=== PATIENT | female | born 1985 | race African-American/Black ===

== ENCOUNTER 2019-05-14 16:21 | Emergency (ER) | payer OTHER, SELFPAY ==
[2019-05-14] VITALS (7 sets, daily range): BP systolic 147–151; BP diastolic 90–98; PULSE 88–106; RESP 17–24; TEMP 36.9; O2SAT 8–100
--- NOTE | ~2019-05-14 | XR_ITS ---
EXAMINATION: XR chest 2V DATE: 05/14/2019 18:03 INDICATION: Shortness of breath TECHNIQUE: PA and lateral views of the chest are obtained. COMPARISON: 03/22/2017 FINDINGS: The lungs are free of acute opacities. There is no pleural effusion or pneumothorax. The ca rdiomediastinal silhouette is normal. The visualized bones and soft tissues are unremarkable. IMPRESSION: 1. No acute cardiopulmonary abnormality. Reviewed, dictated and finalized at location A. CUT ENGRAVER
--- NOTE | 2019-05-14 17:21 | ECG_ITS ---
Measurements Intervals [place] Rate: 97 P: 54 AR: 130 QRS: 61 QRSD: 70 T: 41 QT: 321 QTc: 409 Interpretive Statements SINUS RHYTHM BASELINE ARTIFACT- I, II, III, AVR, AVL NORMAL ECG Electronically Signed On 05-14-2019 19:49:07 [employer] by Dominic Lo D.O.
[2019-05-14 17:34] LABS: Basophils Percent Auto 0.4 % (0.2-1.2); Eosinophils Absolute Auto 0.5 K/mm3 (0-0.3); Eosinophils Percent Auto 6.1 % (0-4.4); Hematocrit 39.9 % (37.0-47.0); Hemoglobin 12.6 g/dL (12.0-15.0); Immature Granulocyte Absolute 0.02 K/mm3 (0.00-0.031); Immature Granulocyte Percent A 0.3 % (0-0.5); Lymphocytes Absolute Auto 2.84 K/mm3 (0.9-3.2); Lymphocytes Percent Auto 36.1 % (18.3-44.2); Mean Corpuscular HGB Conc 31.6 g/dl (32-36); Mean Corpuscular Volume 82.3 fl (80-100); Mean Platelet Volume 10.6 fl (7.4-10.4); Monocytes Absolute Auto 0.9 K/mm3 (0.1-0.6); Monocytes Percent Auto 10.8 % (2.6-8.5); Neutrophils Absolute Auto 3.7 K/mm3 (1.3-6.7); Neutrophils Percent Auto 46.3 % (45.5-73.1); Platelet Count Result 321 k/mm3 (150-375); Red Blood Count 4.85 M/mm3 (4.2-5.4); Red Cell Distribution Width 15.1 % (11.5-14.5); White Blood Count 7.9 K/mm3 (4.5-10.0)
[2019-05-14 17:45] LABS: Blood Urea Nitrogen 16 mg/dL (7-17); Calcium 9.6 mg/dL (8.4-10.2); Carbon Dioxide 25 mmol/L (22-30); Chloride 100 mmol/L (98-107); Estimated Glomerular Filt Rate > 60; Glucose 93 mg/dL (65-105); Potassium 4.1 mmol/L (3.4-5.0); Sodium 141 mmol/L (137-145)
--- NOTE | 2019-05-14 20:10 | ED.SOB ---
HPI - SOB/Dyspnea General Chief Complaint: Shortness of Breath/Dyspnea <Jet Larkin PA-C - Last Filed: 05/14/19 21:57> Stated Complaint: asthma <Jet Larkin PA-C - Last Filed: 05/14/19 21:57> Time Seen by Provider: 05/14/19 19:29 <Jet Larkin PA-C - Last Filed: 05/14/19 21:57> Source: patient <Jet Larkin PA-C - Last Filed: 05/14/19 21:57> Mode of arrival: ambulatory <Jet Larkin PA-C - Last Filed: 05/14/19 21:57> Limitations: no limitations <Jet Larkin PA-C - Last Filed: 05/14/19 21:57> History of Present Illness HPI Narrative: Patient is a 33-year-old female who presents to emergency department for evaluation of asthma exacerbation that began today with wheezing shortness of breath noting the symptoms have been present most of the day on arrival notes that she has been getting over some upper respiratory symptoms with nonproductive cough rhinorrhea and congestion but denies any vomiting diarrhea does note some aching of the chest with coughing. Patient on arrival is in no distress he does present with wheezing typically notes that she gets better with updraft and steroids. <Jet Larkin PA-C - Last Filed: 05/14/19 21:57> Related Data Allergies/Adverse Reactions: Allergies Allergy/AdvReac Type Severity Reaction Status Date / Time No Known Allergies Allergy Unknown Unverified 01/21/19 19:15 No Known Allergies Allergy Uncoded 01/21/19 19:15 <Jet Larkin PA-C - Last Filed: 05/14/19 21:57> Review of Systems Review of Systems: All systems reviewed & are unremarkable except as noted in HPI and below <Jet Larkin PA-C - Last Filed: 05/14/19 21:57> [facility] Past Medical History Medical History: Medical History Asthma Chlamydia <Jet Larkin PA-C - Last Filed: 05/14/19 21:57> Surgical History Surgical History: Surgical History H/O tubal ligation <Jet Larkin PA-C - Last Filed: 05/14/19 21:57> Social History Social History: Social History Smoking status: Never smoker Gender identity (if verbalized by the patient): Female <Jet Larkin PA-C - Last Filed: 05/14/19 21:57> Exam Narrative: Exam Narrative: GENERAL: Well-appearing, well-nourished, and in no acute distress. HEAD: Normocephalic, atraumatic. EYES: PERRLA and EOMI. ENT: Nares clear, no rhinorrhea or epistaxis. Mucous membranes moist. Oropharynx without tonsillar hypertrophy exudate or other lesions. CHEST: Clear to auscultation. No respiratory distress. Expiratory wheezes noted HEART: Regular rate and rhythm. No murmur heard. EXTREMITIES: Normal range of motion. No edema. SKIN: Warm, dry, no rash. NEURO: No focal deficits. Alert and oriented x3. Normal speech and gait PSYCH: Normal mood and affect. <Jet Larkin PA-C - Last Filed: 05/14/19 21:57> Course Course Emergency Course: Patient in the room in no distress aware of case findings treatment plan and diagnosis agreeing to follow-up as directed or to return if symptoms worsen or concerns <Jet Larkin PA-C - Last Filed: 05/14/19 21:57> Vital Signs Vital signs: Vital Signs Temperature 36.9 C 05/14/19 17:21 Pulse Rate 100 05/14/19 17:21 Respiratory Rate 19 05/14/19 17:21 Blood Pressure 151/98 H 05/14/19 17:21 Pulse Oximetry 100 05/14/19 17:21 Temperature 36.9 C 05/14/19 17:21 Pulse Rate 88 05/14/19 22:03 Respiratory Rate 18 05/14/19 22:03 Blood Pressure 148/96 H 05/14/19 22:03 Pulse Oximetry 98 05/14/19 22:03 <Jet Larkin PA-C - Last Filed: 05/14/19 21:57> Vital Signs Temperature 36.9 C 05/14/19 17:21 Pulse Rate 100 05/14/19 17:21 Respiratory Rate 19 05/14/19 17:21 Blood Pressure 151/98 H 05/14/19 17:21 Pu
[2019-05-14] MEDS: IPRATROPIUM BR 0.02% INH SOLN 0.5 MG/2.5 ML VIAL INHALATION (20:23)
[2019-05-14] MEDS: ALBUTEROL SULFATE NEB 2.5 MG/0.5 ML INH 5 MG INHALATION ×2 (20:23→21:11)
[2019-05-14] MEDS: predniSONE 20 MG TABLET 60 MG PO (20:26)
== END 2019-05-14 22:03 | disposition home or self-care (01) ==
PROVIDERS: Emergency Provider Emergency Medicine; PCP Family Medicine
DX: J45.901 Unspecified asthma with (acute) exacerbation (principal)
CPT/HCPCS: 36415; 71046; 80048; 85025; 93005; 94640; 99284; J7512

== ENCOUNTER 2019-07-18 22:38 | Emergency (ER) | payer OTHER, SELFPAY ==
--- NOTE | ~2019-07-18 | CT_ITS ---
EXAMINATION: CT abdomen pelvis w con EXAM DATE: 07/18/2019 23:37 INDICATION: Left-sided abdominal pain. TECHNIQUE: Spiral CT of the abdomen and pelvis was performed following intravenous injection of 100 m L Omnipaque 350. Axial, coronal and sagittal images were reviewed. The dose-length product (DLP) fo r this examination was 559.42 mGy-cm. The exposure was tailored according to patient size (auto mA e xposure control), and iterative reconstruction (ASIR) was used as additional dose reduction technique . Comparison is made to prior examination from 03/22/2017. FINDINGS: The liver, spleen, adrenal glands and pancreas are unremarkable. Gallbladder is unremarkab le. No biliary obstruction. Portal and splenic veins are patent. Kidneys enhance symmetrically. T here is no hydronephrosis. Probable small fibroid. The bladder is undistended at time of imaging. There is no retroperitoneal or pelvic lymphadenopathy. The appendix is normal. The stomach and small bowel are unremarkable. There is moderate amount of c olonic stool. No free intraperitoneal gas. The heart is normal in size. There are no pericardial or pleural effusions. The lung bases are unremarkable. The bones are normal. IMPRESSION: 1. Moderate amount of colonic stool. 2. No acute intra-abdominal findings. 3. Probable small fibroid. Reviewed, dictated and finalized at location A.
[2019-07-18 22:40] VITALS: BP 153/109; PULSE 92; RESP 16; O2SAT 100
[2019-07-18 22:52] LABS: Basophils Absolute Auto 0.1 K/mm3 (0.0-0.1); Basophils Percent Auto 0.5 % (0.2-1.2); Eosinophils Absolute Auto 0.4 K/mm3 (0-0.3); Eosinophils Percent Auto 4.2 % (0-4.4); Hematocrit 41.6 % (37.0-47.0); Immature Granulocyte Absolute 0.01 K/mm3 (0.00-0.031); Immature Granulocyte Percent A 0.1 % (0-0.5); Lymphocytes Percent Auto 40.5 % (18.3-44.2); Mean Corpuscular HGB Conc 31.3 g/dl (32-36); Mean Corpuscular Hemoglobin 25.7 pg (26-34); Mean Corpuscular Volume 82.2 fl (80-100); Mean Platelet Volume 10.3 fl (7.4-10.4); Monocytes Absolute Auto 0.5 K/mm3 (0.1-0.6); Monocytes Percent Auto 5.8 % (2.6-8.5); Neutrophils Absolute Auto 4.5 K/mm3 (1.3-6.7); Neutrophils Percent Auto 48.9 % (45.5-73.1); Platelet Count Result 374 k/mm3 (150-375); Red Blood Count 5.06 M/mm3 (4.2-5.4); Red Cell Distribution Width 14.8 % (11.5-14.5); White Blood Count 9.1 K/mm3 (4.5-10.0)
--- NOTE | 2019-07-18 22:52 | ED.ABDPAIN ---
HPI - Abdominal Pain General Chief Complaint: Abdominal Pain Stated Complaint: abd pain Time Seen by Provider: 07/18/19 22:40 Source: patient Mode of arrival: ambulatory Limitations: no limitations History of Present Illness HPI narrative: 33 yo female who presents for evaluation of left upper abdominal pain. Patient states today her pain started 1.5 hours ago while she was having a bowel movement. Her pain has been constant for 1 hours. She states she had similar pain a couple of times over the past couple weeks but they only lasted a few minutes. She denies associated nausea, vomiting, diarrhea or urinary symptoms. She has not taken anything for pain. MD elicited complaint: abdominal pain Pain Consistency: constant Location: LUQ Pain scale (0-10): 9 Quality: stabbing Radiation: LUQ Exacerbating factors: nothing Relieving factors: nothing Related Data Home Medications Medication Instructions Recorded Confirmed amitriptyline 07/18/19 metformin 500 mg PO DAILY 07/18/19 Allergies Allergy/AdvReac Type Severity Reaction Status Date / Time No Known Allergies Allergy Verified 07/18/19 22:44 Review of Systems Review of Systems: All systems reviewed & are unremarkable except as noted in HPI and below Constitutional: Constitutional: Denies chills, Denies fever(s) and Denies weakness Cardiovascular: Cardiovascular: Denies chest pain Respiratory: Respiratory: Denies cough and Denies dyspnea Gastrointestinal: Gastrointestinal: Reports abdominal pain, Denies constipation, Denies diarrhea, Denies nausea and Denies vomiting Genitourinary: Genitourinary: Denies hematuria, Denies nocturia, Denies dysuria, Denies flank pain and Denies urinary incontinence Musculoskeletal: Musculoskeletal: Denies back pain [facility] Past Medical History Medical History Asthma Chlamydia Surgical History Surgical History H/O tubal ligation Social History Social History (Updated 07/18/19 @ 22:59 by Linda Astudillo MD) Smoking status: Never smoker Alcohol intake: current Alcohol use details: social drinking Gender identity (if verbalized by the patient): Female Exam Const: General: no acute distress and alert Orientation/consciousness: patient oriented x3 Chest: Chest palpation & inspection: normal inspection of the chest Resp: Effort & Inspection: normal respiratory effort and no retractions Auscultation: clear to auscultation bilaterally Cardio: Rate: regular rate Rhythm: regular rhythm Heart sounds: no murmurs GI: Inspection: non-distended GI Palp: Yes Soft to palpation, Yes Tenderness to palpation present (GI) (LUQ, LLQ), No Guarding due to palpation present (GI) and No Rigid due to palpation : General: Yes no CVA tenderness Skin: General skin exam: normal color Rashes: no rashes Neuro: General: patient oriented x3 and moves all extremities Course Reevaluation(s) Reevaluation #1: I have discussed with patient that CT shows fibroid but no acute findings. I Discussed she will need to follow up with PCP and start taking medication like pepcid and maalox for her pain. Date: 07/19/19 Time: 00:30 Vital Signs Vital signs: Vital Signs Pulse Rate 92 07/18/19 22:40 Respiratory Rate 16 07/18/19 22:40 Blood Pressure 153/109 H 07/18/19 22:40 Pulse Oximetry 100 07/18/19 22:40 Pulse Rate 83 07/19/19 01:01 Respiratory Rate 18 07/19/19 01:01 Blood Pressure 140/90 07/19/19 01:01 Pulse Oximetry 100 07/19/19 01:01 MDM - Abdominal Pain Differential Diagnosis Differential diagnosis: Likely abdominal pain, calculus of kidney, constipation, endometriosis, gastroenteritis and small bowel obstruction Lab Data Attestation: I reviewed the patient's lab results. Result diagrams: 07/18/19 22:46 07/18/19 22:46 Labs: Lab Results
[2019-07-18 23:01] VITALS: BP 129/89; PULSE 85; RESP 20; O2SAT 100
[2019-07-18 23:03] LABS: Alanine Aminotransferase 26 U/L (4-35); Albumin Level 4.5 g/dL (3.5-5.1); Alkaline Phosphatase 72 U/L (38-126); Aspartate Amino Transferase 55 U/L (14-36); Bilirubin,Total 0.5 mg/dL (0.2-1.3); Blood Urea Nitrogen 13 mg/dL (7-17); Calcium 9.2 mg/dL (8.4-10.2); Carbon Dioxide 28 mmol/L (22-30); Chloride 106 mmol/L (98-107); Estimated Glomerular Filt Rate > 60; Glucose 94 mg/dL (65-105); Lipase 82 U/L (23-300); Potassium 3.6 mmol/L (3.4-5.0); Sodium 140 mmol/L (137-145)
[2019-07-18 23:16] LABS: Add Urine Microscopic? YES; Appearance Urine Clear (Clear); Bilirubin Urine Negative (Negative); Blood Urine Negative (Negative); Color Urine Yellow (Yellow); Glucose Urine UA Negative (Negative); Ketones Urine Negative (Negative); Leukocyte Esterase Ur Negative LEU/UL (Negative); Mucus Urine Rare /lpf; Nitrate Urine Negative (Negative); Protein Urine 2+ mg/dL (Negative); RBC Urine 0-2 /hpf (0-2); Specific Grav Ur 1.026 (1.001-1.035); Squamous Epithelial Cell Urine Many /hpf (Few); WBC Urine 0-3 /hpf
[2019-07-18 23:51] VITALS: BP 125/80; PULSE 100; RESP 20; O2SAT 98
[2019-07-19 01:01] VITALS: BP 140/90; PULSE 83; RESP 18; O2SAT 100
== END 2019-07-19 01:02 | disposition home or self-care (01) ==
PROVIDERS: Emergency Medicine; Emergency Provider General Practice; PCP Family Medicine
DX: R10.12 Left upper quadrant pain (principal); J45.909 Unspecified asthma, uncomplicated; R93.89 Abnormal findings on diagnostic imaging of other specified body structures
CPT/HCPCS: 36415; 74177; 80053; 81001; 81025; 83690; 85025; 96374; 99284; J0131; Q9967

== ENCOUNTER 2019-11-17 22:42 | Emergency (ER) | payer OTHER, SELFPAY ==
[2019-11-17 22:43] VITALS: BP 138/94; PULSE 88; RESP 22; TEMP 36.7; O2SAT 100
[2019-11-17 23:00] VITALS: BP 121/78; PULSE 78; RESP 19; O2SAT 97
--- NOTE | 2019-11-17 23:11 | ED.ABDPAIN ---
HPI - Abdominal Pain General Chief Complaint: Abdominal Pain Stated Complaint: abd pain Time Seen by Provider: 11/17/19 22:50 Source: patient Mode of arrival: ambulatory Limitations: no limitations History of Present Illness HPI narrative: This patient is a 34 year old female who presents for evaluation of epigastric abdominal pain. Patient states she developed epigastric abdominal pain 3 hours ago. She describes this pain as twisting. She also had nausea and emesis x 2. She has history of similar pain in the past so she tried taking bentyl but she vomited. She states her pain has improved. This pain started 2 hours after eating ice cream. She has been evaluated for this pain with labs and CT scan. She is taking omeprazole and bentyl for IBS. Onset (ago): month(s) Related Data Home Medications Medication Instructions Recorded Confirmed amitriptyline 07/18/19 Allergies Allergy/AdvReac Type Severity Reaction Status Date / Time No Known Allergies Allergy Verified 11/17/19 22:44 Review of Systems Review of Systems: All systems reviewed & are unremarkable except as noted in HPI and below Constitutional: Constitutional: Denies chills and Denies fever(s) Gastrointestinal: Gastrointestinal: Reports abdominal pain, Denies diarrhea, Reports nausea and Reports vomiting PMFSH Social History Social History (Updated 07/18/19 @ 22:59 by Linda Astudillo MD) Smoking status: Never smoker Alcohol intake: current Gender identity (if verbalized by the patient): Female Exam Narrative: Exam Narrative: GENERAL: Well-appearing, well-nourished, and in no acute distress. HEAD: Normocephalic, atraumatic NOSE: Nares clear, THROAT:Mucous membranes moist, NECK: Supple, without lymphadenopathy or mass RESPIRATORY: No respiratory distress, Airway patent, Respirations non-labored, Clear to auscultation without rales, rhonchi or wheeze HEART: Regular rate and rhythm. No murmur heard. Normal peripheral pulses. ABDOMEN: Soft, diffuse tenderness, nondistended, normal active bowel sounds. No masses. No rebound or guarding, No organomegaly. EXTREMITIES: No edema, normal strength with full range of motion. SKIN: Warm, dry, normal color without rash NEURO: Alert and oriented x3. CN 2-12 grossly intact. No focal deficits. PSYCH: Normal mood and affect. Course Reevaluation(s) Reevaluation #1: Patient reports her abdominal pain is gone. She has no nausea or vomiting either. Labs are unremarkable. Date: 11/18/19 Time: 01:02 Vital Signs Vital signs: Vital Signs Temperature 98.1 F 11/17/19 22:43 Pulse Rate 88 11/17/19 22:43 Respiratory Rate 22 H 11/17/19 22:43 Blood Pressure 138/94 H 11/17/19 22:43 Pulse Oximetry 100 11/17/19 22:43 Temperature 98.1 F 11/17/19 22:43 Pulse Rate 84 11/18/19 01:00 Respiratory Rate 20 11/18/19 01:00 Blood Pressure 127/88 11/18/19 01:00 Pulse Oximetry 100 11/18/19 01:00 MDM - Abdominal Pain Lab Data Attestation: I reviewed the patient's lab results. Result diagrams: 11/17/19 23:21 11/17/19 23:21 Labs: Lab Results 11/17/19 11/17/19 11/17/19 Range/Units 23:21 23:21 23:21 WBC 8.0 (4.5-10.0) K/mm3 RBC 4.73 (4.2-5.4) M/mm3 Hgb 12.5 (12.0-15.0) g/dL Hct 38.5 (37.0-47.0) % MCV 81.4 (80-100) fl MCH 26.4 (26-34) pg MCHC 32.5 (32-36) g/dl RDW 14.4 (11.5-14.5) % Plt Count 348 (150-375) k/mm3 MPV 10.8 H (7.4-10.4) fl Immature Gran % (Auto) 0.1 (0-0.5) % Neut % (Auto) 51.9 (45.5-73.1) % Lymph % (Auto) 37.6 (18.3-44.2) % [place] % (Auto) 6.7 (2.6-8.5) % Eos % (Auto) 3.3 (0-4.4) % Baso % (Auto) 0.4 (0.2-1.2) % Lymph # (Auto) 2.99 (0.9-3.2) K/mm3 [place] # (Auto) 0.5 (0.1-0.6) K/mm3 Eos # (Auto) 0.3 (0-0.3) K/mm3 Baso # (Auto) 0.0 (0.0-0.1) K/mm3 Abs Immat Gran (auto) 0.01 (0.00-0.031) K/mm3 Absolute Neuts (aut
[2019-11-17] MEDS: LACTATED RINGERS 1,000 ML 999 ML IV CONT (23:22)
[2019-11-17] MEDS: PANTOPRAZOLE SODIUM IV 40 MG VIAL IV PUSH (23:22)
[2019-11-17] MEDS: ONDANSETRON INJ 4 MG/2 ML VIAL IV PUSH (23:22)
[2019-11-17] MEDS: DICYCLOMINE HCL INJ 20 MG/2 ML VIAL IM (23:22)
[2019-11-17 23:30] LABS: Basophils Percent Auto 0.4 % (0.2-1.2); Eosinophils Absolute Auto 0.3 K/mm3 (0-0.3); Eosinophils Percent Auto 3.3 % (0-4.4); Hematocrit 38.5 % (37.0-47.0); Hemoglobin 12.5 g/dL (12.0-15.0); Immature Granulocyte Absolute 0.01 K/mm3 (0.00-0.031); Immature Granulocyte Percent A 0.1 % (0-0.5); Lymphocytes Absolute Auto 2.99 K/mm3 (0.9-3.2); Lymphocytes Percent Auto 37.6 % (18.3-44.2); Mean Corpuscular HGB Conc 32.5 g/dl (32-36); Mean Corpuscular Hemoglobin 26.4 pg (26-34); Mean Corpuscular Volume 81.4 fl (80-100); Mean Platelet Volume 10.8 fl (7.4-10.4); Monocytes Absolute Auto 0.5 K/mm3 (0.1-0.6); Monocytes Percent Auto 6.7 % (2.6-8.5); Neutrophils Absolute Auto 4.1 K/mm3 (1.3-6.7); Neutrophils Percent Auto 51.9 % (45.5-73.1); Platelet Count Result 348 k/mm3 (150-375); Red Blood Count 4.73 M/mm3 (4.2-5.4); Red Cell Distribution Width 14.4 % (11.5-14.5)
[2019-11-17 23:36] LABS: Add Urine Microscopic? YES; Appearance Urine Clear (Clear); Bilirubin Urine Negative (Negative); Blood Urine Negative (Negative); Color Urine Yellow (Yellow); Glucose Urine UA Negative (Negative); Ketones Urine Negative (Negative); Leukocyte Esterase Ur Negative LEU/UL (Negative); Mucus Urine Rare /lpf; Nitrate Urine Negative (Negative); Protein Urine 1+ mg/dL (Negative); RBC Urine 0-2 /hpf (0-2); Specific Grav Ur 1.019 (1.001-1.035); Squamous Epithelial Cell Urine Many /hpf (Few); WBC Urine 0-3 /hpf
[2019-11-17 23:44] LABS: Alanine Aminotransferase 34 U/L (4-35); Albumin Level 4.2 g/dL (3.5-5.1); Alkaline Phosphatase 64 U/L (38-126); Anion Gap 9 mmol/L (8-16); Aspartate Amino Transferase 60 U/L (14-36); Bilirubin,Total 0.2 mg/dL (0.2-1.3); Blood Urea Nitrogen 11 mg/dL (7-17); Carbon Dioxide 23 mmol/L (22-30); Chloride 106 mmol/L (98-107); Estimated CRCL calculation 98 ml/min; Estimated Glomerular Filt Rate > 60; Glucose 103 mg/dL (65-105); Lipase 64 U/L (23-300); Sodium 138 mmol/L (137-145)
[2019-11-18 01:00] VITALS: BP 127/88; PULSE 84; RESP 20; O2SAT 100
== END 2019-11-18 01:00 | disposition home or self-care (01) ==
PROVIDERS: Emergency Provider General Practice; PCP Family Medicine
DX: R11.2 Nausea with vomiting, unspecified (principal)
CPT/HCPCS: 36415; 80053; 81001; 81025; 83690; 85025; 96361; 96372; 96374; 96375; 99284; C9113; J0500; J2405; J7120

== ENCOUNTER 2020-03-02 07:36 | Outpatient (CLI) | payer OTHER, SELFPAY ==
--- NOTE | ~2020-03-02 | US_ITS ---
EXAMINATION: US abdomen complete EXAM DATE: 03/02/2020 08:15 INDICATION: Abdominal pain. TECHNIQUE: Multiple grayscale and Doppler images of the complete abdomen were obtained (by a technolo gist who performed the scan) and subsequently reviewed. There is no prior study for comparison. FINDINGS: The abdominal aorta is normal in caliber. Visualized portion IVC is patent. The pancreatic head a nd body are normal in appearance. The pancreatic tail is not visualized. The liver has normal echogenicity and contour. There are no focal liver lesions identified. There is no evidence of intrahepatic biliary duct dilation. Portal venous flow was seen in the hepatopedal , normal direction and has normal Doppler waveform. Common bile duct measures 4 mm, which is normal. The gallbladder wall is normal in thickness, with ex pected amount of distention. No sonographic evidence of pericholecystic fluid. There is cholelithia sis. Technologist performing exam reports patient did not demonstrate sonographic Solano's sign. P alannah note that this sign is less reliable in patients who have received pain medication. Right kidney: There is normal contour and echogenicity. It measures 10.4 x 3.9 x 4.4 centimeters. There are no focal renal lesions identified. There is no hydronephrosis. Left kidney: There is normal contour and echogenicity. It measures 10.4 x 5.2 x 3.2 centimeters. T here are no focal renal lesions identified. There is no hydronephrosis. The spleen is morphologically normal. IMPRESSION: Cholelithiasis. Reviewed, dictated and finalized at location A. OR COUNSEL IMPRESSION: Cholelithiasis.
== END 2020-03-02 07:37 | disposition home or self-care (01) ==
PROVIDERS: PCP Family Medicine; Visit Provider Nurse Practitioner Family
DX: R10.9 Unspecified abdominal pain (principal); K80.20 Calculus of gallbladder without cholecystitis without obstruction
CPT/HCPCS: 76700

== ENCOUNTER 2021-04-08 18:14 | Emergency (ER) | payer SELFPAY ==
[2021-04-08 18:20] VITALS: BP 134/94; PULSE 100; RESP 18; TEMP 37.2; O2SAT 100
--- NOTE | 2021-04-08 20:49 | PC.NURSE ---
pt called for room, not in lobby.
== END 2021-04-08 21:01 | disposition left against medical advice (07) ==
LOC: ANHED 21:01
PROVIDERS: PCP Family Medicine
DX: J45.901 Unspecified asthma with (acute) exacerbation (principal)
CPT/HCPCS: 99199

== ENCOUNTER 2021-08-04 10:40 | Outpatient (CLI) | payer BC, SELFPAY ==
--- NOTE | ~2021-08-04 | US_ITS ---
EXAMINATION: US thyroid DATE: 08/04/2021 11:12 INDICATION: Thyrotoxicosis. Abnormal thyroid function tests. TECHNIQUE: Multiple ultrasound images of the thyroid were obtained. COMPARISON: None. FINDINGS: The right thyroid lobe measures 4.0 x 1.6 x 1.7 cm. The left thyroid lobe measures 4.1 x 1.7 x 1.6 c m. There is normal echotexture and echogenicity throughout the thyroid gland. No discrete nodules id entified. Normal vascular flow is present. IMPRESSION: 1. Normal thyroid. Reviewed, dictated and finalized at location A. IMPRESSION: 1. Normal thyroid.
== END 2021-08-04 10:41 | disposition home or self-care (01) ==
PROVIDERS: PCP Family Medicine; Visit Provider Internal Medicine
DX: E05.80 Other thyrotoxicosis without thyrotoxic crisis or storm (principal)
CPT/HCPCS: 76536

== ENCOUNTER 2021-12-06 00:58 | Day surgery (SDC) | payer BC, SELFPAY ==
[2021-11-24 11:18] VITALS: BMI 39.1
[2021-12-06 07:08] VITALS: BP 135/90; PULSE 90; RESP 20; TEMP 36.4; O2SAT 100
[2021-12-06] MEDS: LACTATED RINGERS 1,000 ML 150 ML IV CONT (07:25)
--- NOTE | 2021-12-06 08:14 | WPDHPUPDATE1 ---
History and Physical Update Update Date/Time: 12/06/21 08:14 History and Physical has been reviewed, including an updated exam of the patient. There are NO changes in the patient's condition. Risks, benefits, and alternatives have been discussed and questions answered. Patient agrees to proceed with procedure.
--- NOTE | 2021-12-06 08:19 | WPDANESEPPF ---
Anes - Initial Pre Proc Eval Procedure: Operation Date: 12/06/21 08:30 Proposed Procedures p Esophagogastroduodenoscopy - Vijay Velásquez MD Date/Time: 12/06/21 08:19 Surgeon: Vijay Velásquez MD Pre Op Diagnosis: nausea Patient Data Age: 36 Gender: F Height: 1.57 m Weight: 97.7 kg Last Vital Signs Temp 97.6 F 12/06/21 07:08 Pulse 90 12/06/21 07:08 Resp 20 12/06/21 07:08 BP 135/90 12/06/21 07:08 Pulse Ox 100 12/06/21 07:08 O2 Del Method Room Air 12/06/21 07:08 Allergies Allergy/AdvReac Type Severity Reaction Status Date / Time No Known Allergies Allergy Verified 12/06/21 07:07 Home Medications Medication Instructions Recorded Confirmed Type albuterol sulfate 90 mcg/actuation 2 puff inhalation QID #6.7 grams 03/25/19 11/24/21 Rx aerosol inhaler amitriptyline 100 mg tablet 100 mg PO DAILY 07/18/19 11/24/21 History albuterol sulfate 0.63 mg/3 mL 0.083 mg inhalation Q4H dyspnea 04/08/21 11/24/21 History solution for nebulization eszopiclone 1 mg tablet (Lunesta) 1 mg PO ONCE 11/14/21 11/24/21 History fluoxetine 10 mg capsule (Prozac) 10 mg PO DAILY 11/14/21 11/24/21 History montelukast 10 mg tablet 10 mg PO DAILY 11/14/21 11/24/21 History (Singulair) ondansetron HCl 4 mg tablet 4 mg PO DAILY 11/14/21 11/24/21 History budesonide-formoterol HFA 160 2 puff inhalation DAILY 11/24/21 11/24/21 History mcg-4.5 mcg/actuation aerosol inhaler (Symbicort) Patient hx anesthesia problems: none Family hx anesthesia problems: none Results Review: All pre-operative results and documents have been reviewed as part of the pre-operative evaluation. FORMERLY [facility], [facility] Past Medical History Medical History (Updated 11/14/21 @ 15:50 by Hellen Whitfield APN-[place]) Asthma Chlamydia Heartburn Nausea Obese Surgical History Surgical History H/O tubal ligation Social History Social History Smoking status: Never smoker Alcohol intake: current Drinks per week: 1 Alcohol use details: social drinking Substance use: never Substance use type: does not use Living arrangements: with family Gender identity (if verbalized by the patient): Female Spiritual care concerns: No Anes - Eval Final PreProcedure Day of Procedure 12/06/21 08:19 Patient weight: morbidly obese Heart: regular rate and rhythm Lungs: clear to auscultation Airway: Mallampati scale Neurological: alert and oriented Last oral intake: >/= 8 hours Emergent: no Anesthetic plan: proceed Anesthesia type and monitoring: general GIVS and standard monitoring Results Review: All pre-operative results and documents have been reviewed as part of the pre-operative evaluation. Informed Consent: The patient's anesthetic plan and its attendant risks and benefits were discussed with the patient/family/POA. Questions were solicited and answers provided to the satisfaction of the patient/family/POA.
[2021-12-06] MEDS: BENZOCAINE (*SP) 60 ML SPRAY CAN (HURRICAINE) 1 SPRAY MUCOUS MEM (08:30)
[2021-12-06 08:39] VITALS: BP 110/73; PULSE 89; RESP 23; O2SAT 96
[2021-12-06 08:49] VITALS: BP 127/90; PULSE 88; RESP 21; O2SAT 97
[2021-12-06 08:59] VITALS: BP 139/104; PULSE 90; RESP 13; O2SAT 99
== END 2021-12-06 09:08 | disposition home or self-care (01) ==
PROVIDERS: PCP Internal Medicine; Visit Provider Internal Medicine Gastroenterology
PROC: 0DJ08ZZ Inspection of Upper Intestinal Tract, Via Natural or Artificial Opening Endoscopic (ICD-10-PCS; CPT 43235; principal; 2021-12-06 08:30)
DX: R11.0 Nausea (principal); R12 Heartburn; J45.909 Unspecified asthma, uncomplicated; E66.9 Obesity, unspecified; Z90.49 Acquired absence of other specified parts of digestive tract
CPT/HCPCS: 43239; 88305; J2704; J7120

== ENCOUNTER 2022-03-12 12:44 | Emergency (ER) | payer BC, SELFPAY ==
[2022-03-12 13:34] VITALS: BP 161/110; PULSE 90; RESP 18; TEMP 36.6; O2SAT 100
[2022-03-12 14:24] LABS: Influenza A QL RT-PCR Positive (Negative); Influenza B QL RT-PCR Negative (Negative); RSV RNA, RT-PCR Negative (Negative); SARS-CoV-2 RNA PCR Negative
--- NOTE | 2022-03-12 15:13 | ED.GENADULT ---
HPI - General Adult General Chief complaint: Upper Respiratory Infection Stated complaint: nasal congestion/cough/nausea Time Seen by Provider: 03/12/22 14:33 History of Present Illness HPI narrative: Patient is a 36-year-old female who presents the ER with cough and body aches. Ongoing for the last week. She feels some fogginess in her head with sinus congestion and left frontal headache. No chest pain or chest pressure. No difficulty breathing. Review of Systems Review of Systems: All systems reviewed & are unremarkable except as noted in HPI and below Constitutional: Constitutional: Denies chills, Reports fatigue and Reports fever(s) ENT: Reports nasal congestion and Denies sore throat Cardiovascular: Cardiovascular: Denies chest pain, Denies rapid heart rate and Denies radiating jaw, neck or arm pain Respiratory: Respiratory: Reports cough and Denies dyspnea Gastrointestinal: Gastrointestinal: Denies abdominal pain, Denies nausea and Denies vomiting Exam Narrative: GENERAL: Well-appearing, well-nourished, and in no acute distress. HEAD: Normocephalic, atraumatic. CHEST: Clear to auscultation. No respiratory distress. HEART: Regular rate and rhythm. Normal peripheral pulses. EXTREMITIES: Normal range of motion. No edema. NEURO: Alert and oriented x3. PSYCH: Normal mood and affect. Course Course Emergency Course: Patient resting comfortably. Informed of results. Discharge home. Vital Signs Vital signs: Vital Signs Temperature 97.8 F 03/12/22 13:34 Pulse Rate 90 03/12/22 13:34 Respiratory Rate 18 03/12/22 13:34 Blood Pressure 161/110 H 03/12/22 13:34 Pulse Oximetry 100 03/12/22 13:34 Oxygen Delivery Room Air 03/12/22 13:34 Temperature 97.8 F 03/12/22 13:34 Pulse Rate 90 03/12/22 13:34 Respiratory Rate 18 03/12/22 13:34 Blood Pressure 161/110 H 03/12/22 13:34 Pulse Oximetry 100 03/12/22 13:34 Oxygen Delivery Room Air 03/12/22 15:19 Medical Decision Making Vital Signs Vital Signs: Vital Signs Temperature 97.8 F 03/12/22 13:34 Pulse Rate 90 03/12/22 13:34 Respiratory Rate 18 03/12/22 13:34 Blood Pressure 161/110 H 03/12/22 13:34 Pulse Oximetry 100 03/12/22 13:34 Oxygen Delivery Room Air 03/12/22 13:34 Temperature 97.8 F 03/12/22 13:34 Pulse Rate 90 03/12/22 13:34 Respiratory Rate 18 03/12/22 13:34 Blood Pressure 161/110 H 03/12/22 13:34 Pulse Oximetry 100 03/12/22 13:34 Oxygen Delivery Room Air 03/12/22 15:19 Lab Data Labs: Lab Results 03/12/22 Range/Units 13:37 Influenza A (RT-PCR) Positive (Negative) Influenza B (RT-PCR) Negative (Negative) RSV (RT-PCR) Negative (Negative) SARS-CoV-2 RNA (RT-PCR) Negative Discharge Plan Discharge Clinical Impression: Influenza Patient Disposition: Home, Self-Care Condition: Stable Instructions: Influenza (ED) Additional Instructions: Return to the ER if you cannot breathe, you cannot keep down food or water, you lose consciousness, you have additional concerns. Follow-up/Referrals: PHYSICIAN NOT ON STAFF,NONSTAFF [Primary Care Provider] - 1 Week
== END 2022-03-12 15:27 | disposition home or self-care (01) ==
PROVIDERS: Emergency Medicine; Emergency Provider Emergency Medicine
DX: J10.1 Influenza due to other identified influenza virus with other respiratory manifestations (principal); Z20.822 Contact with and (suspected) exposure to COVID-19
CPT/HCPCS: 87637; 99283

== ENCOUNTER 2022-10-10 16:58 | Emergency (ER) | payer BC, SELFPAY ==
[2022-10-10 17:20] VITALS: BP 125/87; PULSE 78; RESP 20; TEMP 36.7; O2SAT 100
[2022-10-10 17:59] LABS: Basophils Percent Auto 0.3 % (0.2-1.2); Eosinophils Absolute Auto 0.5 K/mm3 (0-0.3); Eosinophils Percent Auto 7.6 % (0-4.4); Hematocrit 36.2 % (37.0-47.0); Hemoglobin 11.5 g/dL (12.0-15.0); Immature Granulocyte Absolute 0.01 K/mm3 (0.00-0.031); Immature Granulocyte Percent A 0.2 % (0-0.5); Lymphocytes Absolute Auto 2.13 K/mm3 (0.9-3.2); Lymphocytes Percent Auto 32.8 % (18.3-44.2); Mean Corpuscular HGB Conc 31.8 g/dl (32-36); Mean Corpuscular Hemoglobin 26.2 pg (26-34); Mean Corpuscular Volume 82.5 fl (80-100); Mean Platelet Volume 10.2 fl (7.4-10.4); Monocytes Absolute Auto 0.5 K/mm3 (0.1-0.6); Monocytes Percent Auto 8.2 % (2.6-8.5); Neutrophils Absolute Auto 3.3 K/mm3 (1.3-6.7); Neutrophils Percent Auto 50.9 % (45.5-73.1); Platelet Count Result 297 k/mm3 (150-375); Red Blood Count 4.39 M/mm3 (4.2-5.4); Red Cell Distribution Width 16.5 % (11.5-14.5); White Blood Count 6.5 K/mm3 (4.5-10.0)
[2022-10-10 18:12] LABS: Alanine Aminotransferase 18 U/L (6-35); Albumin Level 4.1 g/dL (3.5-5.1); Alkaline Phosphatase 48 U/L (38-126); Anion Gap 6 mmol/L (8-16); Aspartate Amino Transferase 27 U/L (14-36); Bilirubin,Total 0.4 mg/dL (0.2-1.3); Blood Urea Nitrogen 6 mg/dL (7-17); Calcium 8.6 mg/dL (8.4-10.2); Carbon Dioxide 23 mmol/L (22-30); Chloride 111 mmol/L (98-107); Estimated CRCL calculation 85 ml/min; Estimated Glomerular Filt Rate > 60; Glucose 93 mg/dL (65-110); Lipase 70 U/L (23-300); Potassium 3.7 mmol/L (3.4-5.0); Sodium 140 mmol/L (137-145)
[2022-10-10 19:08] LABS: Appearance Urine Cloudy (Clear); Bacteria Urine 1+ /hpf; Bilirubin Urine Negative (Negative); Blood Urine Negative (Negative); Color Urine Yellow (Yellow); Glucose Urine UA Negative (Negative); Ketones Urine Negative (Negative); Leukocyte Esterase Ur Negative LEU/UL (Negative); Nitrate Urine Negative (Negative); Non Pathogenic Casts 0-2; Protein Urine Negative (Negative); Specific Grav Ur 1.025 (1.001-1.035); Squamous Epithelial Cell Urine Moderate /hpf (Few)
[2022-10-10 19:18] LABS: Add Urine Microscopic? YES
[2022-10-10 20:29] VITALS: PULSE 94; RESP 16; O2SAT 100
--- NOTE | 2022-10-10 21:37 | PC.NURSE ---
Patient's name called twice by OLGA Soto in waiting room and no answer. Patient no longer found in waiting room.
== END 2022-10-10 21:44 | disposition left against medical advice (07) ==
PROVIDERS: Emergency Provider Emergency Medicine
DX: J45.901 Unspecified asthma with (acute) exacerbation (principal); R11.10 Vomiting, unspecified
CPT/HCPCS: 36415; 80053; 81001; 83690; 85025; 87086; 87088; 99199

== ENCOUNTER 2022-10-11 04:34 | Emergency (ER) | payer BC, SELFPAY ==
--- NOTE | ~2022-10-11 | XR_ITS ---
Portable chest x-ray Comparison: None Clinical History: Asthma Findings: Lungs are clear, without focal consolidation or pleural effusion. Cardiomediastinal silho uette is unremarkable. Bones and soft tissues are unremarkable. Impression: Normal chest. Reviewed, dictated and finalized at location M. Impression: Normal chest.
[2022-10-11 04:41] VITALS: BP 154/96; PULSE 94; RESP 20; TEMP 36.6; O2SAT 100
[2022-10-11 04:52] VITALS: O2SAT 99
[2022-10-11 04:56] VITALS: PULSE 92
--- NOTE | 2022-10-11 05:37 | ED.GENADULT ---
HPI - General Adult General Chief complaint: Shortness of Breath/Dyspnea Stated complaint: shortness of breath/asthma Time Seen by Provider: 10/11/22 05:14 History of Present Illness HPI narrative: This is a 36-year-old female history of asthma presenting ED for difficulty breathing. Patient says that she started about 3 days ago. She says this is her typical asthma exacerbation. She has been taking her nebulizer and albuterol inhaler without relief. She denies fevers cough or chest pain. She does have some chest tightness which she associates with asthma. Patient is in the ER approximately 1 time per year for asthma. She has never been intubated. She believes she will be able to go home after breathing treatment. Related Data Allergies Allergy/AdvReac Type Severity Reaction Status Date / Time No Known Allergies Allergy Verified 10/10/22 16:59 [facility] Past Medical History Medical History Asthma Surgical History Surgical History History of cholecystectomy Exam Narrative: APPEARANCE: No apparent distress. Head: atraumatic. EYES: EOMI, NOSE: Atraumatic NECK: Trachea midline RESPIRATORY: decreased air entry in all caballero. Speaking in full sentences, no accessory muscle use CARDIOVASCULAR: RRR, no peripheral edema ABDOMINAL: Non-distended MUSCULOSKELETAl: No obvious deformities NEURO: Alert. Moving 4/4 extremities SKIN:: Warm, dry. Normal color PSYCHIATRIC: Normal affect Course Vital Signs Vital signs: Vital Signs Temperature 97.8 F 10/11/22 04:41 Pulse Rate 94 10/11/22 04:41 Respiratory Rate 20 10/11/22 04:41 Blood Pressure 154/96 H 10/11/22 04:41 Pulse Oximetry 100 10/11/22 04:41 Oxygen Delivery Room Air 10/11/22 04:41 Temperature 97.8 F 10/11/22 04:41 Pulse Rate 103 H 10/11/22 06:41 Respiratory Rate 15 10/11/22 06:41 Blood Pressure 130/96 H 10/11/22 06:41 Pulse Oximetry 100 10/11/22 06:41 Oxygen Delivery Room Air 10/11/22 04:52 Medical Decision Making [facility] [place] Narrative Medical decision making narrative: -Presentation: 36-year-old female history of asthma presenting with 3 days of difficulty breathing. 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 -Discussion of Management/Consultants: None -Dx tests considered but not ordered: none -Procedures: none -Interventions: Hour long DuoNeb treatment, magnesium, dexamethasone -Shared decision making / Disposition: upon re-evaluation patient's condition is improved. She is comfortable going home. Discharged with return precautions. -RX Vital Signs Vital Signs: Vital Signs Temperature 97.8 F 10/11/22 04:41 Pulse Rate 94 10/11/22 04:41 Respiratory Rate 20 10/11/22 04:41 Blood Pressure 154/96 H 10/11/22 04:41 Pulse Oximetry 100 10/11/22 04:41 Oxygen Delivery Room Air 10/11/22 04:41 Temperature 97.8 F 10/11/22 04:41 Pulse Rate 103 H 10/11/22 06:41 Respiratory Rate 15 10/11/22 06:41 Blood Pressure 130/96 H 10/11/22 06:41 Pulse Oximetry 100 10/11/22 06:41 Oxygen Delivery Room Air 10/11/22 04:52 Discharge Plan Discharge Clinical Impression: Asthma with exacerbation Patient Disposition: Home, Self-Care Condition: Stable Instructions: Antibiotic Form, Asthma (ED) Additional Instructions: Please return emergency department if you develop fevers, chest pain, or breathing is getting worse. Follow-up/Referrals: Patrick,Cornell Anand MD [Primary Care Provider] -
[2022-10-11] MEDS: ALBUTEROL SULFATE NEB 2.5 MG/3 ML INH 10 MG INHALATION (05:45)
[2022-10-11] MEDS: IPRATROPIUM BR 0.02% INH SOLN 0.5 MG/2.5 ML VIAL 1.5 MG INHALATION (05:45)
[2022-10-11 06:29] VITALS: RESP 20
[2022-10-11] MEDS: ONDANSETRON INJ 4 MG/2 ML VIAL IV PUSH (06:39)
[2022-10-11] MEDS: MAGNESIUM SULF 2 GM/WATER 50ML 2 GM/50 ML BAG IVPB (06:39)
[2022-10-11] MEDS: SODIUM CHLORIDE 0.9% IV 1,000 ML 999 ML IV CONT (06:40)
[2022-10-11 06:41] VITALS: BP 130/96; PULSE 103; RESP 15; O2SAT 100
--- NOTE | 2022-10-11 06:42 | PC.NURSE ---
Pt reports relief of her SOB.
[2022-10-11 07:46] VITALS: BP 127/78; PULSE 95; RESP 19; O2SAT 100
== END 2022-10-11 07:49 | disposition home or self-care (01) ==
PROVIDERS: Emergency Provider Emergency Medicine; PCP Internal Medicine
DX: J45.901 Unspecified asthma with (acute) exacerbation (principal)
CPT/HCPCS: 71045; 94640; 96365; 96375; 99284; J1100; J2405; J3475; J7030

== ENCOUNTER 2022-11-20 08:37 | Outpatient (CLI) | payer BC, SELFPAY ==
--- NOTE | ~2022-11-20 | US_ITS ---
EXAMINATION: US abdomen complete DATE: 11/20/2022 09:10 INDICATION: Nausea TECHNIQUE: Multiple grayscale and Doppler ultrasound images of the abdomen were obtained. COMPARISON: None available FINDINGS: The head and body of the pancreas are normal. The pancreatic tail is obscured by bowel gas. The liver is normal with normal echogenicity and echotexture. No surface nodularity. Normal hepatope deanna flow in the main portal vein. The gallbladder is surgically absent. The normal common bile duct m easures 4 mm. The visualized portions of the aorta and inferior vena cava are normal. The spleen is normal in appearance and measures 7.4 cm. The right kidney measures 10.3 x 4.2 x 5.8 cm . The left kidney measures 9.9 x 6.2 x 4.8 cm. The kidneys demonstrate normal parenchymal echogenicit y. There is no hydronephrosis. IMPRESSION: 1. No sonographic correlate for the patient's symptoms. Reviewed, dictated and finalized at location A.
== END 2022-11-20 08:38 | disposition home or self-care (01) ==
PROVIDERS: PCP Internal Medicine; Visit Provider Internal Medicine
DX: R11.0 Nausea (principal)
CPT/HCPCS: 76700; J2704

== ENCOUNTER 2022-12-27 08:12 | Outpatient (CLI) | payer BC, SELFPAY ==
--- NOTE | ~2022-12-27 | NM_ITS ---
EXAM: NM gastric emptying study DATE: 12/27/2022 12:54 INDICATION: Nausea TECHNIQUE: A gastric emptying study was performed using the methodology of Gyu KELLY, et al. J Nucl Med 2007; 48:568-572. The patient was given a meal consisting of 2 scrambled eggs labeled with 0.985 mCi Tc-99m sulfur colloid, 2 slices of toast, two packages of jam, and approximately 120 mL of water . Simultaneous anterior and posterior 1-min images of the abdomen were obtained with the patient supi ne at multiple time points over a total period of 4 hours. The geometric mean of anterior and posteri or views was determined, and the percentage retention was calculated for each time point. COMPARISON: None FINDINGS: Gastric retention of the radiotracer-labeled meal was 47%, 28%, and 4% at the 1-hour, 2-hour, and 4-h our time points, respectively. With this technique, apparent rapid gastric emptying is suggested by < 30% gastric retention at 1 hour. Delayed gastric emptying is defined by gastric retention of >90% at 1 hour, >60% retention at 2 hours, or >10% retention at 4 hours. IMPRESSION: 1. Normal gastric emptying. Reviewed, dictated and finalized at location A. IMPRESSION: 1. Normal gastric emptying.
== END 2022-12-27 08:13 | disposition home or self-care (01) ==
PROVIDERS: PCP Internal Medicine; Visit Provider Nurse Practitioner
DX: R11.0 Nausea (principal)
CPT/HCPCS: 78264; A9541

== ENCOUNTER 2023-04-24 09:46 | Outpatient (CLI) | payer BC, SELFPAY ==
--- NOTE | ~2023-04-24 | MMUS_ITS ---
EXAMINATION: MM diagnostic pawan BI w aleida, US breast RT limited HISTORY: Palpable lump of the inner right breast (unknown quadrant) TECHNIQUE: Craniocaudal, mediolateral, and mediolateral oblique 3-D tomosynthesis images of the evelia ts were performed and synthetic 2-D images were generated. CAD analysis was submitted and interpreted . High resolution limited right breast ultrasound was performed. COMPARISON: None, baseline BREAST PARENCHYMAL COMPOSITION: There are scattered areas of fibroglandular density. FINDINGS: MAMMOGRAPHIC FINDINGS: There is a 1.5 x 1.2 cm oval, equal density mass with indistinct margins in the middle/posterior thir d of the inner right breast at the 3:00 location, 8 cm from the nipple corresponding to the palpable abnormality of concern. No suspicious mass, calcification, or architectural distortion are identified in the left breast. ULTRASOUND: There is a 1.4 x 0.8 cm oval, parallel, hypoechoic mass with an angular margin at the 2:00 location, 5 cm from the nipple with posterior acoustic shadowing and no definite internal vascularity. IMPRESSION: 1. Indeterminate right breast mass. 2. Ultrasound-guided biopsy is recommended. BI-RADS category 4, suspicious findings. Reviewed, dictated and finalized at location A. [employer] TECHNICIAN IMPRESSION: 1. Indeterminate right breast mass. 2. Ultrasound-guided biopsy is recommended. BI-RADS category 4, suspicious findings.
== END 2023-04-24 09:47 ==
LOC: MICIMG 09:46
PROVIDERS: PCP Nurse Practitioner; Visit Provider Nurse Practitioner
DX: N63.10 Unspecified lump in the right breast, unspecified quadrant (principal); R92.8 Other abnormal and inconclusive findings on diagnostic imaging of breast
CPT/HCPCS: 76642; 77062; 77066; G0279

== ENCOUNTER 2023-05-22 13:25 | Outpatient (CLI) | payer BC, SELFPAY ==
--- NOTE | 2023-05-22 14:30 | NEURO_ITS ---
Impression: # Complains of pain in hands. Not diabetic. # Normal Nerve Conduction Study. # No Carpal Tunnel Syndrome or ulnar neuropathy. # Normal needle/EMG exam. Nerve Conduction Studies Anti Sensory Summary Table Stim Site NR Peak (ms) P-T Amp (?V) Site1 Site2 Delta-P (ms) Dist (cm) Cordell (m/s) Left Median Anti Sensory (2-3nd Digit) Wrist 2.8 77.8 Wrist 2-3nd Digit 2.8 14.0 50 Wrist 3.0 95.3 Wrist 2-3nd Digit 2.8 14.0 50 Right Median Anti Sensory (2-3nd Digit) Wrist 2.7 68.0 Wrist 2-3nd Digit 2.7 14.0 52 Wrist 2.8 80.6 Wrist 2-3nd Digit 2.7 14.0 52 Left Radial Anti Sensory (Base 1st Digit) Wrist 2.2 26.0 Wrist Base 1st Digit 2.2 0.0 Right Radial Anti Sensory (Base 1st Digit) Wrist 1.8 38.6 Wrist Base 1st Digit 1.8 0.0 Left Ulnar Anti Sensory (5th Digit) Wrist 2.8 65.1 Wrist 5th Digit 2.8 14.0 50 Right Ulnar Anti Sensory (5th Digit) Wrist 2.5 61.2 Wrist 5th Digit 2.5 14.0 56 Motor Summary Table Stim Site NR Onset (ms) O-P Amp (mV) Site1 Site2 Delta-0 (ms) Dist (cm) Cordell (m/s) Left Median Motor (Abd Poll Brev) Wrist 3.0 4.4 Elbow Wrist 4.2 26.0 62 Elbow 7.2 4.1 Right Median Motor (Abd Poll Brev) Wrist 3.1 5.7 Elbow Wrist 4.3 27.0 63 Elbow 7.4 2.5 Left Ulnar Motor (Abd Dig Minimi) Wrist 2.9 6.0 A Elbow Wrist 5.1 31.0 61 A Elbow 8.0 5.3 Right Ulnar Motor (Abd Dig Minimi) Wrist 2.8 5.6 A Elbow Wrist 4.9 29.0 59 A Elbow 7.7 4.5 F Wave Studies NR F-Lat (ms) L-R F-Lat (ms) Left Median (Mrkrs) (Abd Poll Brev) 27.03 0.00 Right Median (Mrkrs) (Abd Poll Brev) 27.03 0.00 Left Ulnar (Mrkrs) (Abd Dig Min) 26.95 0.69 Right Ulnar (Mrkrs) (Abd Dig Min) 26.26 0.69 EMG Side Muscle Nerve Root Ins Act Fibs Amp Dur Recrt Comment Right 1stDorInt Ulnar C8-T1 Nml Nml Nml Nml Nml Right Ext Indicis Radial (Post Int) C7-8 Nml Nml Nml Nml Nml Right Ext Digitorum Radial (Post Int) C7-8 Nml Nml Nml Nml Nml Right BrachioRad Radial C5-6 Nml Nml Nml Nml Nml Right PronatorTeres Median C6-7 Nml Nml Nml Nml Nml Right Abd Poll Brev Median C8-T1 Nml Nml Nml Nml Nml Right ABD Dig Min Ulnar C8-T1 Nml Nml Nml Nml Nml Left 1stDorInt Ulnar C8-T1 Nml Nml Nml Nml Nml Left Ext Indicis Radial (Post Int) C7-8 Nml Nml Nml Nml Nml Left Ext Digitorum Radial (Post Int) C7-8 Nml Nml Nml Nml Nml Left BrachioRad Radial C5-6 Nml Nml Nml Nml Nml Left PronatorTeres Median C6-7 Nml Nml Nml Nml Nml Left Abd Poll Brev Median C8-T1 Nml Nml Nml Nml Nml Left ABD Dig Min Ulnar C8-T1 Nml Nml Nml Nml Nml MTDD
== END 2023-05-22 13:26 | disposition home or self-care (01) ==
PROVIDERS: PCP Internal Medicine; Visit Provider Nurse Practitioner Family
DX: G56.03 Carpal tunnel syndrome, bilateral upper limbs (principal)
CPT/HCPCS: 95886; 95911

== ENCOUNTER 2023-07-14 18:33 | Emergency (ER) | payer BC, SELFPAY ==
--- NOTE | ~2023-07-14 | XR_ITS ---
EXAMINATION: XR chest 1V portable DATE: 07/14/2023 19:07 INDICATION: Dyspnea. TECHNIQUE: A single frontal view of the chest was obtained. COMPARISON: None. FINDINGS: There is no pneumonia, pleural effusion, or pneumothorax. The heart size is normal. IMPRESSION: 1. No acute cardiopulmonary disease. Reviewed, dictated and finalized at location E.
[2023-07-14 18:42] VITALS: BP 138/88; PULSE 92; RESP 15; TEMP 36.7; O2SAT 100
[2023-07-14 18:54] VITALS: BP 129/99; PULSE 90; RESP 22; O2SAT 100
[2023-07-14 18:55] VITALS: O2SAT 100
[2023-07-14] MEDS: predniSONE 20 MG TABLET 40 MG PO (19:10)
[2023-07-14] MEDS: ALBUTEROL SULFATE NEB 2.5 MG/3 ML INH 15 MG INHALATION (19:29)
[2023-07-14] MEDS: IPRATROPIUM BR 0.02% INH SOLN 0.5 MG/2.5 ML VIAL 1 MG INHALATION (19:30)
[2023-07-14 19:31] VITALS: PULSE 87; RESP 18
[2023-07-14 19:40] VITALS: BP 135/94; PULSE 83; RESP 16; O2SAT 100
[2023-07-14 20:35] LABS: Influenza A QL RT-PCR Negative (Negative); Influenza B QL RT-PCR Negative (Negative); RSV RNA, RT-PCR Negative (Negative); SARS-CoV-2 RNA PCR Negative (Negative)
[2023-07-14 20:38] VITALS: O2SAT 100
--- NOTE | 2023-07-14 21:21 | ED.URI ---
HPI - URI/Sore Throat General Chief Complaint: Upper Respiratory Infection Stated Complaint: asthma Time Seen by Provider: 07/14/23 18:58 History of Present Illness HPI Narrative: Patient with asthma presents here with shortness of breath that feels like her asthma exacerbation, tried albuterol at home with minimal improvement. Recovering from a URI from a few days ago. Related Data Home Medications Medication Instructions Recorded Confirmed amitriptyline 100 mg tablet 100 mg PO DAILY 07/18/19 11/24/21 albuterol sulfate 0.63 mg/3 mL 0.083 mg inhalation Q4H dyspnea 04/08/21 11/24/21 solution for nebulization eszopiclone 1 mg tablet (Lunesta) 1 mg PO ONCE 11/14/21 11/24/21 fluoxetine 10 mg capsule (Prozac) 10 mg PO DAILY 11/14/21 11/24/21 montelukast 10 mg tablet 10 mg PO DAILY 11/14/21 11/24/21 (Singulair) ondansetron HCl 4 mg tablet 4 mg PO DAILY 11/14/21 11/24/21 budesonide-formoterol HFA 160 2 puff inhalation DAILY 11/24/21 11/24/21 mcg-4.5 mcg/actuation aerosol inhaler (Symbicort) albuterol sulfate 0.63 mg/3 mL 0.63 mg inhalation Q4-6H PRN 04/04/23 04/04/23 solution for nebulization famotidine 20 mg tablet 20 mg PO DAILY 04/04/23 04/04/23 montelukast 10 mg tablet 10 mg PO DAILY 04/04/23 04/04/23 ondansetron HCl 8 mg tablet 8 mg PO Q8H 04/04/23 04/04/23 pregabalin 75 mg capsule (Lyrica) 75 mg PO BID 04/04/23 04/04/23 topiramate 25 mg tablet 25 mg PO BID 04/04/23 04/04/23 Allergies Allergy/AdvReac Type Severity Reaction Status Date / Time No Known Allergies Allergy Verified 07/14/23 18:46 Review of Systems Review of Systems: All systems reviewed & are unremarkable except as noted in HPI and below PMFSH Past Medical History Medical History Asthma Chronic nausea GERD (gastroesophageal reflux disease) Migraines Obesity Slow transit constipation Surgical History Surgical History H/O tubal ligation History of cholecystectomy Social History Social History (System 04/05/23 @ 14:33 by Shadia Schneider) Smoking status: Never smoker Alcohol intake: current Drinks per week: 1 Alcohol use details: social drinking Substance use: never Substance use type: does not use Living arrangements: with family Gender identity (if verbalized by the patient): Female Spiritual care concerns: No Exam Narrative: EXAMINATION OF ORGAN SYSTEMS/BODY AREAS: Constitutional: Vital signs per nursing GENERAL:[No acute distress, non-toxic appearing.] HEAD: Normal with no signs of head trauma. EYES: EOMI, conjunctiva normal ENT: Hearing grossly intact LUNGS: Nonlabored breathing. Diminished lung sounds bilaterally HEART: [Regular rate and rhythm] ABD: [Soft], [nontender to palpation] EXT: Normal range of motion SKIN: [No rashes or lesions.] NEURO: [Alert and oriented x 3. No gross focal sensory or strength deficits.] PSYCH: Normal affect Course Vital Signs Vital signs: Vital Signs Temperature 98.0 F 07/14/23 18:42 Pulse Rate 92 07/14/23 18:42 Respiratory Rate 15 07/14/23 18:42 Blood Pressure 138/88 07/14/23 18:42 Pulse Oximetry 100 07/14/23 18:42 Oxygen Delivery Room Air 07/14/23 18:42 Temperature 98.0 F 07/14/23 18:42 Pulse Rate 83 07/14/23 19:40 Respiratory Rate 16 07/14/23 19:40 Blood Pressure 135/94 H 07/14/23 19:40 Pulse Oximetry 100 07/14/23 20:38 Oxygen Delivery Room Air 07/14/23 20:38 MDM - URI/Sore Throat MDM Narrative Medical decision making narrative: ED COURSE AND MEDICAL DECISION MAKINF with acute dyspnea and wheezing likely due to acute asthma exacerbation based on history and exam. Patient is hemodynamically stable. Nebulizer treatments are started and steroids given orally. Patient monitored in the ED for a couple of hours and on reevaluation is feeling significantly better. No respiratory distress o
== END 2023-07-14 20:40 | disposition home or self-care (01) ==
PROVIDERS: Student in an Organized Health Care Education/Training Program; Emergency Provider Emergency Medicine; PCP Internal Medicine
DX: J45.901 Unspecified asthma with (acute) exacerbation (principal); J06.9 Acute upper respiratory infection, unspecified; Z20.822 Contact with and (suspected) exposure to COVID-19; E66.9 Obesity, unspecified; Z68.35 Body mass index [BMI] 35.0-35.9, adult; K21.9 Gastro-esophageal reflux disease without esophagitis; Z90.49 Acquired absence of other specified parts of digestive tract
CPT/HCPCS: 71045; 87637; 94640; 99283; J7512

== ENCOUNTER 2023-09-11 12:54 | Emergency (ER) | payer BC, SELFPAY ==
--- NOTE | ~2023-09-11 | XR_ITS ---
EXAMINATION: XR shoulder LT min 2V DATE: 09/11/2023 15:32 INDICATION: Left shoulder pain TECHNIQUE: AP internally and externally rotated, AP oblique externally rotated and transscapular Y vi ews of the left shoulder were obtained. COMPARISON: None FINDINGS: Normal alignment. Suggestion of an unfused os acromiale with smooth corticated margins. No fracture. Glenohumeral joint is normal. Acromioclavicular joint is normal. Soft tissues are unremarkable. Visua lized portion of the lungs are clear. Heart size is normal. 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 Otherwise unremarkable left shoulder radiographs with no acute osseous abnormality. Reviewed, dictated and finalized at location A. 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 Otherwise unremarkable left should er radiographs with no acute osseous abnormality.
--- NOTE | 2023-09-11 12:55 | ECG_ITS ---
Test Date: 2023-09-11 12:59:52 Measurements Intervals [place] Rate: 73 P: 21 WI: 140 QRS: 33 QRSD: 73 T: 21 QT: 344 QTc: 380 Interpretive Statements SINUS RHYTHM No previous ECG available for comparison Electronically Signed On 09-11-2023 13:55:46 CDT by Martin Ceron M.D.
[2023-09-11 13:06] VITALS: BP 138/84; PULSE 81; RESP 16; TEMP 36.4; O2SAT 100
--- NOTE | 2023-09-11 14:38 | ED.EXTPRO ---
HPI - Extremity Problem General Chief complaint: Extremity Problem,Nontraumatic Stated complaint: LEFT shoulder pain x2 weeks Time Seen by Provider: 09/11/23 13:14 History of Present Illness HPI Narrative: Patient is a 37-year-old female with history of carpal tunnel on the right hand, asthma, depression here with left shoulder pain. She states the symptoms began about 2 weeks ago. They were initially intermittent and sharp in nature, starting in her shoulder and radiating down her left arm. She has continued to work through this, she works as a survey and mapping technician. She does note she has been working more shifts than she usually was when she started her job. She over the last day her symptoms have become persistent and her arm feels quite heavy on the left side. She states that she was talking to her mom about her symptoms, her mom was worried that she may be having a heart attack in patient presented to the ER for evaluation. Patient denies any cardiac history. She denies any OCP use, no recent travel, no recent surgery, no prior history of PE or DVT. She denies any injuries to this shoulder, no prior surgeries on the shoulder. Related Data Home Medications Medication Instructions Recorded Confirmed amitriptyline 100 mg tablet 100 mg PO DAILY 07/18/19 11/24/21 albuterol sulfate 0.63 mg/3 mL 0.083 mg inhalation Q4H dyspnea 04/08/21 11/24/21 solution for nebulization eszopiclone 1 mg tablet (Lunesta) 1 mg PO ONCE 11/14/21 11/24/21 fluoxetine 10 mg capsule (Prozac) 10 mg PO DAILY 11/14/21 11/24/21 montelukast 10 mg tablet 10 mg PO DAILY 11/14/21 11/24/21 (Singulair) ondansetron HCl 4 mg tablet 4 mg PO DAILY 11/14/21 11/24/21 budesonide-formoterol HFA 160 2 puff inhalation DAILY 11/24/21 11/24/21 mcg-4.5 mcg/actuation aerosol inhaler (Symbicort) albuterol sulfate 0.63 mg/3 mL 0.63 mg inhalation Q4-6H PRN 04/04/23 04/04/23 solution for nebulization famotidine 20 mg tablet 20 mg PO DAILY 04/04/23 04/04/23 montelukast 10 mg tablet 10 mg PO DAILY 04/04/23 04/04/23 ondansetron HCl 8 mg tablet 8 mg PO Q8H 04/04/23 04/04/23 pregabalin 75 mg capsule (Lyrica) 75 mg PO BID 04/04/23 04/04/23 topiramate 25 mg tablet 25 mg PO BID 04/04/23 04/04/23 Allergies Allergy/AdvReac Type Severity Reaction Status Date / Time No Known Allergies Allergy Verified 07/14/23 18:46 Review of Systems Review of Systems: All systems reviewed & are unremarkable except as noted in HPI and below PMFSH Past Medical History Medical History Asthma Chronic nausea GERD (gastroesophageal reflux disease) Migraines Obesity Slow transit constipation Surgical History Surgical History H/O tubal ligation History of cholecystectomy Social History Social History (System 04/05/23 @ 14:33 by Shadia Schneider) Smoking status: Never smoker Alcohol intake: current Drinks per week: 1 Alcohol use details: social drinking Substance use: never Substance use type: does not use Living arrangements: with family Gender identity (if verbalized by the patient): Female Spiritual care concerns: No Exam Narrative: GENERAL: Well-appearing, well-nourished, and in no acute distress. NECK: Supple. CHEST: Clear to auscultation. No respiratory distress. HEART: Regular rate and rhythm. Normal peripheral pulses. ABDOMEN: Soft, nontender, nondistended. EXTREMITIES: Reproducible left anterior shoulder tenderness which does seem to worsen with ROM. Positive Spurling test to the left. No midline cervical spine tenderness. No humeral shaft deformities, normal painless ROM of left elbow and wrist. Strong radial pulse on the left. Normal sensation throughout the left arm. SKIN: Warm, dry, no rash. NEURO: No focal deficits. Alert and oriented x3. Course Course Emergency Course: Chart review performed. Patient here with intermittent lef
[2023-09-11] MEDS: ACETAMINOPHEN 325 MG TABLET 650 MG PO (15:37)
[2023-09-11 16:15] VITALS: BP 138/72; PULSE 75; RESP 18; TEMP 36.4
== END 2023-09-11 16:19 | disposition home or self-care (01) ==
PROVIDERS: Emergency Provider Student in an Organized Health Care Education/Training Program; PCP Internal Medicine
DX: M25.512 Pain in left shoulder (principal); J45.909 Unspecified asthma, uncomplicated; E66.9 Obesity, unspecified; Z68.34 Body mass index [BMI] 34.0-34.9, adult; K21.9 Gastro-esophageal reflux disease without esophagitis; Z90.49 Acquired absence of other specified parts of digestive tract; Z79.899 Other long term (current) drug therapy
CPT/HCPCS: 73030; 93005; 99283; A9270